=== PATIENT | female | born 1960 | race Caucasian/White ===

== ENCOUNTER 2021-11-21 11:00 | Day surgery (SDC) | payer OTHER ==
[~2021-11-21] VITALS: Ht 172.7 cm; Wt 83.6 kg
[2021-11-21] MEDS ORDERED: METF500 PO (11:20)
[2021-11-21] MEDS ORDERED: Prozac20 MG PO (11:21)
[2021-11-21] MEDS ORDERED: PIOG15 PO (11:21)
--- NOTE | 2021-11-21 12:21 | NUR ---
11/21/21 1221 Lee Arriaga FLUID DEFICIT OF 250 MLS. [facility] NOTIFIED.
== END 2021-11-21 13:25 | disposition home or self-care (01) ==
LOC: ORSCSDS 11:00
PROVIDERS: Obstetrics & Gynecology
PROC: 0UDB8ZX Extraction of Endometrium, Via Natural or Artificial Opening Endoscopic, Diagnostic (ICD-10-PCS; principal; 2021-11-21 12:00)
DX: N95.0 Postmenopausal bleeding (principal); R93.89 Abnormal findings on diagnostic imaging of other specified body structures; E11.9 Type 2 diabetes mellitus without complications; Z87.891 Personal history of nicotine dependence; F32.A Depression, unspecified; Z79.84 Long term (current) use of oral hypoglycemic drugs; Z79.899 Other long term (current) drug therapy
CPT/HCPCS: 82947; 88305; J0171; J1100; J1885; J2250; J2405; J2704; J3010; J7120